=== PATIENT | male | born 1930 | race Caucasian/White ===

== ENCOUNTER 2018-07-15 10:54 | Day surgery (SDC) | payer MEDICARE, OTHER ==
[~2018-07-15] VITALS: Ht 160 cm; Wt 67.6 kg
[~2018-07-15 10:54] MED LIST: AUGMENTIN 875-1 EACH PO; COUMADIN2.5 MG PO; DOXAZOSIN MESYLA1 MG PO; FLUTICASONE PRO16 GM NAS; HYDROCODON-ACE1 EA10 PO; LEVOTHYROXINE50 MCG PO; LISINOPRIL-HCT1 EAC2 PO; LISINOPRIL10 MG PO; NORCO 5-325 TA1 EACH PO; OMEPRAZOLE20 MG PO; SYNTHROID25 MCG PO; SYNTHROID50 MCG PO
--- NOTE | 2018-07-15 13:54 | NUR ---
07/15/18 1354 Calvin Harris ROLLED PT TO LEFT LATERAL POSITION AFTER COMPLETION OF BONE MARROW BX. PT DENIES NAUSEA OR PAIN. FALLS ASLEEP EASILY. POSITIONED FOR COMFORT WITH PILLOWS. ATTENDS CHANGED AT 1354 AND SKIN CARE GIVEN.
== END 2018-07-15 14:15 | disposition home or self-care (01) ==
LOC: OPS 10:54 → DS 10:54 → OPS 12:00
PROVIDERS: Specialist
PROC: 079T3ZX Drainage of Bone Marrow, Percutaneous Approach, Diagnostic (ICD-10-PCS; 2018-07-15)
PROC: 07DR3ZX Extraction of Iliac Bone Marrow, Percutaneous Approach, Diagnostic (ICD-10-PCS; principal; 2018-07-15 12:00)
DX: C92.00 Acute myeloblastic leukemia, not having achieved remission (principal); K21.9 Gastro-esophageal reflux disease without esophagitis; Z85.46 Personal history of malignant neoplasm of prostate; Z87.440 Personal history of urinary (tract) infections; Z79.01 Long term (current) use of anticoagulants; Z79.899 Other long term (current) drug therapy; Z79.51 Long term (current) use of inhaled steroids
CPT/HCPCS: 80053; 82232; 83615; 84550; 85025; 99152; 99153; J2250; J3010; J7120

== ENCOUNTER 2018-11-21 10:03 | Emergency (ER) | payer MEDICARE, OTHER ==
[~2018-11-21] VITALS: Ht 160 cm; Wt 62.6 kg
[~2018-11-21 10:03] MED LIST changes: +ALLOPURINOL100 MG PO; +COUMADIN3 MG PO; +COUMADIN7.5 MG PO; +FUROSEMIDE40 MG PO; +HYDREA500 MG PO; +IRON325 M1 PO; +LASIX20 MG PO; +MACULAR HEALTH1 EACH PO; +METOPROLOL SUCC25 MG PO; +METOPROLOL TART25 MG PO; +POTASSIUM CHLO10 MEQ PO; +POTASSIUM CHLO20 ME1 PO; +TORSEMIDE20 MG PO; +WARFARIN SODIUM3 MG PO; +ZYLOPRIM300 MG PO
[2018-12-18] MEDS ORDERED: CEFADROXIL500 MG PO (11:04)
== END 2018-11-21 12:51 | disposition home or self-care (01) ==
LOC: ED 10:03
PROC: 093K7ZZ Control Bleeding in Nasal Mucosa and Soft Tissue, Via Natural or Artificial Opening (ICD-10-PCS; principal; 2018-11-21)
DX: R04.0 Epistaxis (principal); E78.5 Hyperlipidemia, unspecified; K21.9 Gastro-esophageal reflux disease without esophagitis; E03.9 Hypothyroidism, unspecified; I48.1 Persistent atrial fibrillation; Z85.46 Personal history of malignant neoplasm of prostate; I13.0 Hypertensive heart and chronic kidney disease with heart failure and stage 1 through stage 4 chronic kidney disease, or unspecified chronic kidney disease; I50.9 Heart failure, unspecified; N18.3 Chronic kidney disease, stage 3 (moderate); Z88.0 Allergy status to penicillin; Z88.8 Allergy status to other drugs, medicaments and biological substances; Z79.899 Other long term (current) drug therapy; Z79.01 Long term (current) use of anticoagulants
CPT/HCPCS: 36415; 85025; 85610; 99283

== ENCOUNTER 2018-12-24 16:46 | Inpatient (IN) | payer MEDICARE, OTHER ==
[~2018-12-24] VITALS: Ht 160 cm; Wt 65.5 kg
[~2018-12-24 16:46] MED LIST changes: +CEFADROXIL500 MG PO
--- OUTSIDE RECORDS SUMMARY | 2018-12-24 16:48 | XMS ---
PreManage Notification: VANI HERRON Security Critical Care Unit Manager Events No recent Security Events currently on file CRITERIA MET - [facility] - Has Care Guidelines CARE PROVIDERS ESPERANZA SOSA Internal Medicine 10/01/2018-Current [employer] PHONE: [phone] Tito Rodriguez MD Primary Care Current PHONE: [phone] shanita Case or Government Documents Librarian Current PHONE: Unknown Sam has no Care Guidelines for this patient. Care History Medical/Surgical 10/01/2018 [facility] - Patient is currently established with [facility]. If patient is seen in the ED during business hours. Please contact CHWs at [facility]. Care Recommendation: This patient has had 5 or more Emergency Department visits in the last 12 months.\T\nbsp; Patient requires education on the scope and purpose of the ED as an acute care provider not a Primary Care Provider and should not be utilized for chronic conditions.\T\nbsp; These are guidelines and the provider should exercise clinical judgment when providing care. E.D. VISIT COUNT (12 MO.) 5 [facility] Hernandez TOTAL 5 NOTE: Visits indicate total known visits. ED/UCC VISIT TRACKING (12 MO.) 12/24/2018 16:46 [facility] [place] TYPE: Emergency COMPLAINT: - SOB 11/21/2018 10:04 [facility] [place] TYPE: Emergency COMPLAINT: - NOSEBLEED DIAGNOSES: - Hypothyroidism, unspecified - Heart failure, unspecified - Other terminal operations supervisor (current) drug therapy - Persistent atrial fibrillation - senior care (current) use of anticoagulants - Personal history of malignant neoplasm of prostate - Allergy status to other drugs, medicaments and biological substances status - Gastro-esophageal reflux disease without esophagitis - Epistaxis - Allergy status to penicillin - Hypertensive heart and chronic kidney disease with heart failure and stage 1 through stage 4 chronic kidney disease, or unspecified chronic kidney disease - Chronic kidney disease, stage 3 (moderate) - Hyperlipidemia, unspecified 10/18/2018 11:23 [facility] [place] TYPE: Emergency COMPLAINT: - WEAKNESS 09/24/2018 14:46 [facility] [place] TYPE: Emergency COMPLAINT: - SOB 05/25/2018 14:54 [facility] [place] TYPE: Emergency COMPLAINT: - INFECTION DIAGNOSES: - senior care (current) use of anticoagulants - Other mcfp (current) drug therapy - Acute sinusitis, unspecified - Chronic sinusitis, unspecified - Nasal polyp, unspecified INPATIENT VISIT TRACKING (12 MO.) 10/19/2018 14:52 [facility] [place] TYPE: Medical Surgical COMPLAINT: - CONGESTIVE HEART FAILURE DIAGNOSES: - Chronic kidney disease, stage 3 (moderate) - Nonrheumatic aortic (valve) stenosis - Hypo-osmolality and hyponatremia - Hyperuricemia without signs of inflammatory arthritis and tophaceous disease - senior care (current) use of anticoagulants - Acute on chronic diastolic (congestive) heart failure - Other terminal operations supervisor (current) drug therapy - Atypical chronic myeloid leukemia, 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 - Unspecified fall, initial encounter - Hyperuricemia without signs of inflammatory arthritis and tophaceous disease - Combined rheumatic disorders of mitral, aortic and tricuspid valves - Personal history of urinary calculi - Chronic atrial fibrillation - Hypothyroidism, unspecified - Pulmonary hypertension, unspecified - Acute on chronic diastolic (congestive) heart failure - Other terminal operations supervisor (current) drug therapy - Contusion of right upper arm, initial encounter - Chronic kidney disease, stage 4 (severe) - Unspecified place in unspecified non-institutional (private) residence as the place of occurrence of the external cause - Chronic myeloid leukemia, BCR/ABL-positive, not having achieved remission - Patient's other noncompliance with medication regimen - Personal history of malignant neoplasm of prostate - Allergy status to penicillin [email or web address]
--- NOTE | 2018-12-24 21:45 | NUR ---
CALLED BY WILLIAM AT [facility] AND HE WAS ASKING IF WE COULD GET AN INR SINCE PATIENT HAS NOT HAD ONE IN OVER 2 WEEKS AND MISSED HIS COUMADIN DOSE TODAY. CALLED AND SHE GAVE THE ORDER. CALLED LAB AND THEY ARE ABLE TO RUN A PT,PTT,INR OFF THE BLOOD DRAWN IN THE ER.
--- NOTE | 2018-12-24 21:55 | NUR ---
2108 - admitted from ed via stretcher. alert, coop, weak. O2 1L/NC IN PLACE, NO SOB NOTED WITH EXERTION. ANSWERED ALL QUESTIONS APPROPRIATELY. RECEIVED LASIX INT ED. NO VOID YET. WEARS ATTENDS. REPOSITIONED IN BED MULTIPLE TIMES FOR COMFORT. SOB NOTED AFTERWARDS. SATS 97% AT THAT TIME. HOB ELEVATED. ORIENTED TO ROOM AND HOSP ROUTINES. CALL LIGHT AND FLUIDS AT HANDS REACH. WILL CHECK ATTENDS AT 2215, IF NO VOID WILL NOTIFY
[2018-12-24] MEDS ORDERED: VENCLEXTA100 MG PO (22:15)
--- NOTE | 2018-12-24 23:30 | NUR ---
PATIENT GETTING 5MG OF COUMADIN PO AND HAVING ASSESSMENT DONE. PATIENT HAS CHE LOWER LEG WRAPS FROM KNEES TO TOES PLACED BY . PATIENT HAD SOME COMPLAINT OF LEFT HEEL DISCOMFORT AND HEEL PROTECTORRS PLACED AND PATIENT SAID THAT RELIEVED THE DISCOMFORT. PATIENT HAS 2 STAGE 2 PRESSURE ULCERS ON HIS UPPER/INNER LEFT AND RIGHT BUTTOCKS WHICH ALLEVYN DRESSINGS WERE PLACED ON. PICTURES IN THE CHART. LARGE GROWTH ON THE LEFT SIDE OF THE BACK BELOW THE LEFT SHOULDER PICTURES IN CHART, ALONG WITH PICTURES OF BOTH LOWER LEG WRAPS.
--- NOTE | 2018-12-25 01:30 | NUR ---
PATIENT RESTING QUIETLY AND HAS EATEN SOME PUDDING, NOT DRINKING MUCH, DENIES THE NEED FOR ANYTHING AND IS WATCHING TV.TURNED TO RIGHT SIDE. BACKSIDE FLOATEDON PILLOWS.
--- NOTE | 2018-12-25 03:35 | NUR ---
PATIENT RESTING QUIETLY EYES CLOSED, TURNED SUPINE, RESPIRATIONS REGULAR, BUT SHALLOW. UPPER LUNGS SOUNDS STILL HAVE CRACKLES WITH DEMINISHED BASES.
--- NOTE | 2018-12-25 05:17 | NUR ---
PATIENT HAS RESTED ON AND OFF SINCE ADMISSION. ON 1L/NC AND SATS ABOVE 94%. BILAT LEG WRAPS PER . ALLEVYN DRESSINGS TO BOTH BUTTOCKS. INCONTINENT URINE IN ATTENDS X2. IV FLUSHES WELL AND PATIENT TURNED Q2HRS.
--- NOTE | 2018-12-25 05:35 | NUR ---
PATIENT WAS CHANGED, AND REPOSITIONED. VITAL SIGNS ALONG WITH I&OS COMPLETE. BEDSIDE TABLE AND CALL LIGHT WITHIN REACH.
--- NOTE | 2018-12-25 07:07 | NUR ---
RECIEVED CRITICAL LAB VALUE FROM DORITA IN LAB. WBC 47.0. CALLED DR MILLIGAN, NO NEW ORDERS.
--- NOTE | 2018-12-25 07:19 | EKG ---
[facility] [address] [place] [address] Signed Normal sinus rhythm Abnormal ECG When compared with ECG of 18-OCT-2018 11:35, Sinus rhythm has replaced Atrial flutter Vent. rate has increased BY [address] now depressed in Inferior leads Inverted T waves have replaced nonspecific T wave abnormality in Inferior leads T wave amplitude has increased in Anterior leads Confirmed by IZABELA MILLIGAN MD ([id number]) on 12/25/2018 7:19:31 AM Electronically Signed By: IZABELA MILLIGAN MD 12/25/18 0719 PATIENT NAME: VANI HERRON Electrocardiogram DATE OF : [birth year] PHYSICIAN: IZABELA MILLIGAN MD REPORT #: [id number] REPORT IS CONFIDENTIAL AND NOT TO BE RELEASED WITHOUT AUTHORIZATION
--- NOTE | 2018-12-25 07:32 | NUR ---
RECIEVED BEDSIDE REPORT FROM TEENA HO. PT SLEEPING SOUNDLY, BREATHING EVEN AND UNLABORED. HOB ELEVATED TO >45*.
--- NOTE | 2018-12-25 09:15 | NUR ---
DISCUSSED PT WRAPS WITH DR MILLIGAN, SHE ADVISED TO LEAVE WRAPS ON. DR SOSA APPLIED WRAPS IN OFFICE AND IT IS NOT SCHEDULED FOR CHANGE UNTIL FRIDAY. NO DISCHARGE, NO DRAINAGE NOTED. PT STATED HE HAS PAIN IN LEFT HEEL, "IT FEELS LIKE A BONE SPUR, SOMETHING IS POKING ME FROM THE INSIDE". HEEL ELEVATED ON PILLOW, HEEL PROTECTORS IN PLACE.
--- NOTE | 2018-12-25 09:54 | NUR ---
PT UP TO CHAIR. TOOK MEDS CRUSHED IN PUDDING. THOSE MEDS THAT COULD NOT BE CRUSHED WERE GIVEN WHOLE IN WATER. PT SWALLOWED WELL, THOUGH HE STATED HE DOES NOT SWALLOW WELL.
--- NOTE | 2018-12-25 10:49 | NUR ---
THE OTHER HOSPICE CASE MANAGER AND I CHANGED HIM AND GOT HIM UP TO THE CHAIR AROUND 0830.
--- NOTE | 2018-12-25 10:51 | NUR ---
SPOKE WITH PATIENT IN ROOM. PATIENT STATES HE WAS FEELING "SO WEAK" AND FORGOT TAKING HIS MEDICATIONS. PATIENT STILL LIVING AT HOME ALONE WITH HIS YVONNE WHO IS CHRONNICALLY ILL ALSO. PATIENT STATES THEY HAVE FAMILY CLOSE BY, AND CAREGIVER THROUGH HELPING HANDS COMES IN FROM 6:30-8:30PM EACH DAY. HE STATES THEY NEED MORE HELP PROBABLY. DISCUSSED THAT THEY HAVE CHW ANABEL WHO IS WORKING WITH THEM, HE ASKS FOR HER TO CHECK ON HIS . WE DISCUSSED HIS POSSIBLY NEEDING REHAB STAY AT DISCHARGE BEFORE BEING ABLE TO G HOME SAFELY, HE AGREES, STATES HE WOULD GO TO [facility] IN [place] IF IT IS NEEDED. PATIENT VERY SOB WITH TALKING. PHYSICAL THERAPY INTO ROOM AT THIS TIME TO WORK WITH PATIENT. CALLED [facility] WHO WILL CHECK WITH FAMILY AND . CALLED [facility], SPOKE WITH ADMITTING DIRECTOR, THEY REQUEST CLINICALS. FAXED [facility]INC[facility], FAX CONFIRMATION RECEIVED.
--- NOTE | 2018-12-25 11:18 | NUR ---
PT SWALLOWED PILLS SLOWLY, WITH WATER.
--- NOTE | 2018-12-25 15:20 | NUR ---
PATIENT USED CALL LIGHT, REQESTED TO BE TRANSFERRED TO BED. PATIENT ABLE TO STAND, PIVOT AND SIT ON BED. ASKED SECOND NURSE TO HELP LAY PATIENT DOWN. UPON LAYING PATIENT DOWN AND BOOSTING UP IN BED, PATIENT BECAME NON-RESPONSIVE, OXYGEN SATS IN LOW 80'S PULSE IN LOW 40'S. DR. MILLIGAN IN ROOM, PATIENT SLOWLY RECOVERED. CALL TO DAUGHTER KIARA THAT PATIENT WAS VERY FRAGILE AND HAD EPISODE.
--- NOTE | 2018-12-25 18:17 | NUR ---
PT HAD EPISODE OF SYNCOPE THIS AFTERNOON, BECOMING UNRESPONSIVE WHILE TRANSFERING BACK TO BED WITH 2 PERSON ASSIST. PT SLOWLY RECOVERED. FAMILY WAS CALLED TO BEDSIDE. PT TOLERATED MEDS CRUSHED IN PUDDING. PILLS UNABLE TO CRUSH HE SWALLOWED WHOLE WITH WATER WITH NO ISSUES. PT ATE MORE THIS SHIFT THAN PREVIOUS DAYS. SEVERAL LARGE INCONT VOIDS. CHRONIC 02 AT 2L. BILAT LOWER LEG WRAPS IN PLACE, LEAVE ON IF INTACT PER DR MILLIGAN AND DR SOSA. PT C/O A BONE SPUR IN LEFT HEEL EARLY IN SHIFT, RESOLVED.
--- NOTE | 2018-12-25 19:24 | NUR ---
PT ON COMMONDE, STRAINNG TO HAVE BM. PT STATES HE MANUALLY DISIMPATCTS HIMSELF. CALLED DR MILLIGAN, SHE ADVISED TO TRY A SUPPOSITORY PRIOR TO DISIMPACTION. DUE TO HIS EARLIER EPISODE OF BRADYCARDIA AND UNRESPONSIVENESS, DR MILLIGAN DOES NOT WANT HIM TO STRAIN.
--- NOTE | 2018-12-25 20:06 | NUR ---
PATIENT GIVEN 650MG PO TYLENOL FOR 8/10 LEFT HEEL PAIN AND A SUPPOSITORY TO HELP HIM HAVE A BM, AND WAS REPOSITIONED IN BED TO SUPINE.
--- NOTE | 2018-12-25 20:27 | NUR ---
AUTOMOBILE SERVICE STATION MECHANIC ROUNDING NOTE. PT RESTING IN BED WITH EYES CLOSED. DOES NOT WAKE WHILE AUDIO TECHNICIAN IN ROOM. CALL LIGHT IN REACH. ROOM IN VIEW OF RN STATION.
--- NOTE | 2018-12-25 20:57 | NUR ---
PT RESTING IN BED WATCHING TV.
--- NOTE | 2018-12-25 22:15 | NUR ---
PATIENT HAD BEEN GIVEN A SUPPOSITORY TO HELP WITH A BM, ORDERED PER DR. MILLIGAN. PATIENT IS WANTING TO BE DIGITALLY DISIMPACTED. IS HERE AND GAVE ME PERMISSION TO DO THIS PROCEDURE BECAUSE PATIENT IS SO UNCOMFORTABLE HE WANTS ME TO PUT A GLOVE ON HIM SIO HE CAN TRY AND DO IT HIMSELF. WITH YAMEL UMAÑA, ASSISTING IN TURNING PATING TO HIS LEFT SIDE. SURGILUBE WAS USED AND A VERY LARGE DARK BM WAS REMOVED AND PATIENT IS FEELING MUCH BETTER. CHUK AND ATTENDS CHANGED FOR INCONTINENT URINE. 2 NEW ALLEVYN DRESSINGS PLACED ON BILAT BUTTOCKS AFTER WASHED WITH WOUND CLEANSER. PATIENT POSITIONED TO LEFT SIDE. REMAINS ON 2L/NC.
--- NOTE | 2018-12-26 00:25 | NUR ---
PATIENT RESTING QUIETLY IN HIGH FOWLERS POSITION, RESPIRATIONS SHALLOW AND REGULAR AT A RATE OF 18. REMAINS ON 2L/NC. PATIENT HAS READJUSTED HIMSELF TO SUPINE SEMI FOWLERS POSITION.
--- NOTE | 2018-12-26 02:30 | NUR ---
PATIENT CANNOT SLEEP AND HAS DECIDED TO WATCH TV AT THIS TIME. NO C/O PAIN AT THIS TIME.
--- NOTE | 2018-12-26 03:41 | NUR ---
PATIENT AGAIN HAVING 8/10 PAIN IN HIS LEFT HEEL. 650MG PO TYLENOL GIVEN AND LEGS REPOSITIONED. PATIENT WANTED THE TV CHANGED TO THE MUSIC CHANNEL FOR HIM AND THIS WAS DONE.
--- NOTE | 2018-12-26 05:13 | NUR ---
PATIENT HAS ONLY CAT NAPPPED THROUGHT THE NIGHT. PATIENT HAD A LARGE BM BY DIGITAL DISIMPACTION AT 2215. PATIENT HAS RECEIVED 650MG TYLENOL X 2 THIS SHIFT FOR 8/10 PAIN HE SAYS HE GETS IN HIS LEFT HEEL. BOTH LOWER LEGS ARE STILL WRAPPED WITH DR. SOSA'S DRESSINGS. NELSY HAS HAD URINARY INCONTINENCE X2 THIS SHIFT AND CHUCKS AND ATTENDS WERE CHANGED AFTER STEVEN AREA WASHED. SL STILL FLUSHES WELL. PATIENT REMAINS ON 2L/NC. NEW ALLEVYN DRESSINGS WERE PLACE ON BILAT PRESSURE ULCERS ON PATIENT'S BUTTOCKS. PATIENT TURNED Q2, ON HIS LEFT SIDE AT THIS TIME.
--- NOTE | 2018-12-26 05:21 | NUR ---
PATIENT AWAKE MOST OF THE FIRST HALF OF THE SHIFT. PATIENT HAD 5MG OXYCODONE FOR 2/10 PAIN TO THE RIGHT HIP AT EVENING MED PASS, AND THEN NEEDED ANOTHER 5MG WHEN HIS HIP PAIN INCREASED TO 4/10. THEN PATIENT SPENT MOST OF THE NIGHT RESTING QUIETLY, EYES CLOSED, RESPIRATIONS REGULAR AND EVEN WITH WITH A RATE OF 16-18. CALL LIGHT IN REACH.
--- NOTE | 2018-12-26 07:46 | NUR ---
RECIEVED BEDSIDE REPORT FROM TEENA HO. PT HAD LARGE BM OVERNIGHT WITH DIGITAL DISIMPACTION. PT RESTLESS, C/O PAIN IN LEFT HEEL, BELIEVES IT IS A BONE SPUR. NO ASPERATION NOTED OVERNIGHT, SLIGHT INCREASE IN PO INTAKE.
--- NOTE | 2018-12-26 08:30 | NUR ---
PT EATING BREAKFAST. PT REQUESTED TO STAY IN BED FOR BREAKFAST, BUT AGREED TO TRY TO GET UP WITH PHYSICAL THERAPY AFTER BREAKFAST.
--- NOTE | 2018-12-26 10:21 | NUR ---
PT TOOK MEDS WITH WATER, NO CHOKING NOTED. PT TOOK SEVERAL MINUTES PER PILL. PT REPORTS PAIN IN HIS TOES, NO DRAINAGE NOTED.
--- NOTE | 2018-12-26 13:14 | NUR ---
PATIENT IN CHAIR RESTING WITH EYES CLOSED. FRESH WATER GIVEN. CALL LIGHT IN REACH. NO FURTHER NEEDS AT THIS TIME.
--- NOTE | 2018-12-26 14:35 | NUR ---
PT MOVED BACK TO BED PER HIS REQUEST. TOLERATED WELL.
--- NOTE | 2018-12-26 15:19 | NUR ---
THIS MORNING AFTER BREAKFAST THE OTHER HEALTHCARE PROJECT MANAGER AND I CHANGED HIM AND WALKED HIM TO CHAIR. GOT HIM A WARM BLANKET.
--- NOTE | 2018-12-26 15:25 | NUR ---
PATIENT IS NOW SLEEPING HIS BED WITH A WASH CLOTH ON HIS FOREHEAD.
--- NOTE | 2018-12-26 15:30 | NUR ---
PATIENT IS SLEEPING.
--- NOTE | 2018-12-26 15:39 | NUR ---
PT WAS SLEEPING SOUNDLY, WOKE UP DISOREIENTED AND CONFUSED. PT STATED HE FELT "HOT ALL OVER". VITALS WITHIN NORMAL LIMITS. ONCE PT BECAME FULLY AWAKE, HE WAS ORIENTED X4. PT REQUESTED WATER, WHICH WAS GIVEN.
--- NOTE | 2018-12-26 18:14 | NUR ---
PT UP TO CHAIR MOST OF THE SHIFT. PT CLEAR MOST OF SHIFT, ONE PERIOD OF CONFUSION WHEN WAKING UP. EASILY REORIENTED. PO INTAKE IMPROVED. URINE OUTPUT QS, BUT NOT EXCESSIVE.
--- NOTE | 2018-12-26 19:54 | NUR ---
PATIENT RESTING QUIETLY IN BED. REMAINS ON 2L/NC. ORIENTED. CALL LIGHT IN REACH.
--- NOTE | 2018-12-26 20:05 | NUR ---
FINISHER HAND ROUNDING. PT RESTING IN BED AWAKE. PT DENIES NEEDS AT THIS TIME. CALL LIGHTIN REACH. ROOM IN VIEW OF RN STATION.
--- NOTE | 2018-12-26 20:56 | NUR ---
IS AWARE OF DECREASED URINE OUTPUT.
--- NOTE | 2018-12-26 23:05 | NUR ---
PATIENT PULLED UP IN BED AND WET ATTENDS CHANGED AND PATIENT CLEANED UP IN BED AND GIVEN NEW WARM BLANKETS. CALL LIGHT IN REACH.
--- NOTE | 2018-12-27 00:09 | NUR ---
PATIENT RESTING QUIETLY, EYES CLOSED, RESPIRATIONS REGULAR AND EVEN, RESP RATE 18. CALL LIGHT IN REACH.
--- NOTE | 2018-12-27 02:06 | NUR ---
PATIENT UP TO BEDSIDE COMMODE WITH 2 PERSON ASSIST. LARGE INCONTINENCE OF URINE IN ATTENDS. ATTENDS CHANGED AND PATIENT CLEANED. MEDIUM FORMED STOOLS ON COMMODE. PATIENT BACK TO BED AND TURNED TO HIS LEFT SIDE WITH PILLOWS FOR CUSHINING. CALL LIGHT IN REACH.
--- NOTE | 2018-12-27 04:10 | NUR ---
PATIENT RESTING QUIETLY IN HIGH FOWLERS POSITION, RESPIRATIONS SHALLOW AND EVEN AT A RATE OF 18. REMAINS ON 2L/NC. CALL LIGHT IN REACH.
--- NOTE | 2018-12-27 05:06 | NUR ---
PATIENT CAT NAPPED THE FIRST HALF OF THE SHIP AND THEN HAS MAINLY RESTED QUIETLY WITH EYES CLOSED, AND RESPIRATIONS SHALLOW AND REGULAR ON 2L/NC. STILL IN AFIB MAINLY IN THE 70'S ON TELE#5. PATIENT DID GET UP TO THE BEDSIDE COMMODE WITH 2 PERSON ASSIST AND HAD A MEDIUM BM. PATIENT'S ATTENDS HAVE BEEN CHANGED A FEW TIMES FOR INCONTINENCE OF URINE. TURNED Q2/HRS. PATIENT HAS DENIED HAVING ANY PAIN ALL SHIFT.
--- NOTE | 2018-12-27 06:03 | NUR ---
VS AND I+O DONE. PATIENT ATTENDS CHANGED AND HE IS NOW RESTING QUIETLY.
--- NOTE | 2018-12-27 07:24 | NUR ---
RECIEVED BEDSIDE REPORT FROM TEENA HO. PT WAS SLEEPING, BUT WOKE TO VOICE. PT REPORTED NO PAIN, NO NEEDS AT THIS TIME.
--- NOTE | 2018-12-27 10:30 | NUR ---
PT RESTING COMFORTABLY IN CHAIR. PT WAS ABLE TO SWALLOW PILLS MUCH EASIER THIS MORNING. 1L BOLUS OF FLUIDS RUNNING PER ORDER. PT MUCH MORE TALKITIVE THIS MORNING.
--- NOTE | 2018-12-27 11:15 | NUR ---
THE OTHER COMMERCIAL DRIVER I HELPED HIM WALK TO HIS CHAIR WITH HIS WALKER FOR BREAKFAST. WE FLOATED HIS HIPS. AND SHE GOT HIM A WARM BLANKET. CHANGED BED LINENS.
--- NOTE | 2018-12-27 11:17 | NUR ---
FAMILY IS VISITING.
--- NOTE | 2018-12-27 16:08 | NUR ---
THE NURSE AND I WALKED PATIENT FROM HIS CHAIR TO THE BEDSIDE COMMODE WITH WALKER. ALSO CHANGED HIS ATTEND. WAITED UNTIL HE WAS FINISHED THAN THE NURSE HELPED HIM BACK TO HIS CHAIR. AND I GOT HIM A WARM BLANKET AND PUT HIS FEET UP.
--- NOTE | 2018-12-27 18:07 | NUR ---
PT TOOK PILLS MUCH EASIER THIS SHIFT, WHOLE WITH WATER. PT UP TO CHAIR MOST OF DAY. BM THIS SHIFT. VOIDING BETTER. ONE LITER BOLUS GIVEN. VSS. DRINKING MUCH MORE WATER.
--- NOTE | 2018-12-27 18:47 | NUR ---
PT HAD PANIC ATTACK AFTER MOVING BACK TO BED FROM THE CHAIR. RN AND BOAT FUELER STAYED IN ROOM HOLDING PT'S HANDS HE CALMED DOWN. PT STATED HE FELT HE COULDN'T BREATHE, O2 AT 2L CHRONIC IN PLACE AND PULSE OX SHOWED 96%. WITH COMFORTING TALK, PT CALMED DOWN IN ABOUT 15 MIN. ATTEND WAS CHANGED.
--- NOTE | 2018-12-27 20:47 | NUR ---
PT ASSESSMENT COMPLETE. PT DENIES PAIN OR NAUSEA. PT REPORTS ONGOING SOB. PT ALSO REPORTS CONTINUED ANXIETY, WANTS FULLING MACHINE OPERATOR TO STAY AT BEDSIDE AND HOLD HIS HAND FOR COMFORT; PROVIDED. DISCUSSION WITH PT REGARDING CAUSE OF ANXIETY. PT STATES HE DOESN'T UNDERSTAND WHY IT WAS SO HARD FOR HIM TO TRANSFER TODAY. STATES THAT HE DOESN'T KNOW IF HE WILL MAKE IT THROUGH THE NIGHT. PT REASSURED. PT STATES THAT HE IS "FEELING BETTER" AFTER DISCUSSION. LUNG SOUNDS TIGHT THROUGHOUT, PT WITH SHALLOW BREATHING. O2 IN PLACE APPROPRIATELY. EDEMA PRESENT TO BILATERAL THIGHS, 2-3+ PITTING EDEMA. COMPRESSION WRAPS PRESENT TO BILATERAL LOWER LEGS. CMS INTACT. ALLEVYN FOAM TO BUTTOCKS X 2. PT REQUESTS WARM BLANKET, PROVIDED. PT DENIES FURTHER NEEDS AT THIS TIME. CALL LIGHT INR EACH. ROOM IN VIEW OF RN STATION.
--- NOTE | 2018-12-27 21:30 | NUR ---
PT CALLING OUT FOR ASSISTANCE, ALSO UTILIZES CALL LIGHT. PT STATES THAT HE NEEDS TO HAVE BM. PT STATES HE DOES NOT WANT TO ATTEMPT TO GET OUT OF BED AT THIS TIME HOWEVER. PT STATES THAT HE WILL CALL FOR ASSISTANCE GETTING CLEANED UP WHEN HE IS READY.
--- NOTE | 2018-12-28 00:30 | NUR ---
PT RESTING IN BED WITH EYES CLOSED. RESPIRATIONS SHALLOW AND UNLABORED. PT APPEARS TO BE SLEEPING. CALL LIGHT IN REACH. ROOM IN VIEW OF RN STATION.
--- NOTE | 2018-12-28 03:24 | NUR ---
PT ASSESSMENT COMPLETE. PT DENIES PAIN, NAUSEA, OR SOB AT THIS TIME. PT FOUND TO HAVE O2 OFF. ASSISTED PT TO REPLACE. PT ASKS IF HE IS GETTING TOO MUCH O2, THINKS HE RESTS BETTER WITH IT OFF. PT ENCOURAGED TO KEEP O2 IN PLACE TO AVOID SOB. PT STATES UNDERSTANDING. LUNG SOUNDS COARSE THROUGHOUT. EDEMA TO BILATERAL UPPER THIGHS AND GROING 2-3+. COMPRESSION DRESSINGS REMAIN IN PLACE TO BILATERAL LOWER EXTREMITIES. PT SHOWS NO S/SX OF ANXIETY THIS ASSESSMENT. PT DENIES FURTHER NEEDS. CALL LIGHT IN REACH. ROOM IN VIEW OF RN STATION WITH CURTAIN OPEN.
--- NOTE | 2018-12-28 07:11 | NUR ---
RECIEVED BEDSIDE REPORT FROM TEENA JEREZ. PT SLEEPING SOUNDLY. ANXIETY REDUCED OVERNIGHT. PT REPORTED ANXIETY D/T MOVING. FLUID COMPLETE. URINE OUTPUT QS.
--- NOTE | 2018-12-28 08:41 | NUR ---
PATIENT SITTING UP IN BED EATING BREAKFAST. RN SAID NO TO GETTING PATIENT UP TO CHAIR. CALL LIGHT IN REACH. NO FURTHER NEEDS AT THIS TIME.
--- NOTE | 2018-12-28 10:05 | NUR ---
PATIENT UP TO CHAIR, 2PA FWW. FRESH WATER GIVEN. WARM BLANKET GIVEN. LINENS CHANGED. CALL LIGHT IN REACH. NO FURTHER NEEDS AT THIS TIME.
--- NOTE | 2018-12-28 10:44 | NUR ---
PT TOOK PILLS WITH NO ISSUES, WHOLE WITH WATER. PT WAS ABLE TO TAKE MIRALAX WITH NO ISSUES. PT IS VERY PLESANT, BUT REPORTS ANXIETY RELATED TO MOVING FROM CHAIR TO BED. PT DID NOT EAT MUCH BREAKFAST, REPORTED THE SAUSAGE WAS "SPICY". PT DECLINED ANY OTHER OPTIONS. PT IS NOW UP IN CHAIR.
--- NOTE | 2018-12-28 11:58 | NUR ---
PT UP TO CHAIR FOR LUNCH. TOLERATED WALKING WITH PHYSICAL THERAPY.
--- NOTE | 2018-12-28 13:24 | NUR ---
PATIENT SITTING IN CHAIR. DEPENDS CHANGED. CALL LIGHT IN REACH. NO FURTHER NEEDS AT THIS TIME.
[2018-12-28] MEDS ORDERED: LEVOTHYROXINE75 MCG PO (14:06)
--- NOTE | 2018-12-28 14:13 | NUR ---
PT APPEARS COMFORTABLE IN CHAIR. ASKED THAT HIS PILLOWS BE READJUSTED. PT ATE LUNCH WELL.
--- NOTE | 2018-12-28 14:53 | NUR ---
PT AND ALL BELONGINGS MOVED TO ROOM 107. FAMILY ARRIVED WE WERE MOVING HIM, SO THEY ARE AWARE. PT TOLERATED THE MOVE WELL, HOWEVER SEEMS ANXIOUS ABOUT BEING SO FAR AWAY. PT ASKED THIS NURSE IF I COULD TALK TO WBT ABOUT GETTING HIM A ROOM CLOSE TO THE NURSING STATION.
--- NOTE | 2018-12-28 16:09 | NUR ---
PT PLACED BACK IN BED. PT TOLERATED BETTER THAN PREVIOUSLY. PREVIOUS WRAPS WERE REMOVED PRIOR TO DR. SHEILA BATRES. FAMILY AT BEDSIDE. SKIN UNDER WRAPS IS GROSSLY INTACT AND CLEAN.
--- NOTE | 2018-12-28 18:12 | NUR ---
VERBAL ORDER FROM SHADIA MCCARTNEY PA-C TO INCREASE DILAUDID TO 8MG Q4HR PRN. SINCE PT IS DUE FOR MEDICATION NEXT AT 1909, SHADIA ORDERED TO WAIT TO GIVE NEW DOSE AT 1909.
--- NOTE | 2018-12-28 19:32 | NUR ---
PT CHANGED ROOMS THIS SHIFT. PT WALKED FROM CHAIR TO DOOR AND BACK WITH PHYSICAL THEARAPY, TOLERATED WELL ON 2L CHRONIC O2. DR SOSA CAME IN TO CHANGE WRAPS ON LOWER LEGS. SKIN UNDER WRAPS WAS INTACT AND CLEAN.
--- NOTE | 2018-12-28 20:08 | NUR ---
RECEIVED REPORT FROM DAY SHIFT RN. PATIENT IS RESTING IN BED. PATIENT DENIES ANY NEEDS. CALL LIGHT IN REACH.
--- NOTE | 2018-12-28 21:00 | NUR ---
PATIENT ASSESEMENTC COMPLETED. PATIENT REPOSITIONED IN BED. PATIENT REMAINS ON 2L VIA NC. PATIENTS EVENING MEDICATIONS GIVEN PER ORDER. PATIENT IS RESTING IN BED. PATIENT DENIES ANY SOB. PATIENT PROVIDED WITH FRESH ICE WATER. PATIENTS CALL LIGHT IS WITHIN REACH.
--- NOTE | 2018-12-29 00:13 | NUR ---
PATIENT REPOSITIONED IN BED. PATIENT DENIES ANY FURTHER NEEDS. CALL LIGHT IN REACH.
--- NOTE | 2018-12-29 00:47 | NUR ---
PATIENT ASKED FOR WARM BLANKET TWICE.
--- NOTE | 2018-12-29 01:17 | NUR ---
PATIENT IS RESTING IN BED WITH EYES CLOSED, RR 18. CALL LIGHT IN REACH.
--- NOTE | 2018-12-29 01:57 | NUR ---
PATIENT REPOSITIONED IN BED. PATIENT GIVEN WARM BLANKET. PATIENT DENIES ANY NEEDS. CALL LIGHT IN REACH.
--- NOTE | 2018-12-29 03:59 | NUR ---
PATIENTS ATTEND CHANGED. PATIENT WAS INCONTINENT OF URINE. PATIENT REPOSITIONED IN BED. PATIENT DENIES ANY NEEDS. CALL LIGHT IN REACH.
--- NOTE | 2018-12-29 04:40 | NUR ---
PATIENT RESTED ON AND OFF THROUGHOUT THE SHIFT. PATIENT IS ON A CARDIAC DIET. PATIENT HAS DECREASED APPETTITE. PATIENT HAS DIET CONSULT. PATIENT IS WORKING WITH PT/OT. PATIENT IS A 2PA W/GAIT BELT AND FWW, MAX ASSIST. PATIENT IS ON 2L VIA NC AND THIS IS CHRONIC. PATIENT IS ON ASP PRECAUTIONS. PATIENT HAS EDEMA IN BILAT LOW EXT. PATIENT HAS CABRERA BOOT ON BILAT LOW EXT. PATIENT IS ANXIOUS AT TIMES. PATIENT REPOSITIONED OFTEN. PATIENT IS AAOX3 AND USES CALL LIGHT APPROPRIATELY. PATIENT IS INCONTINENT AT BASELINE. PATIENT HAS DENIED CHEST PAIN. NO SOB NOTED.
--- NOTE | 2018-12-29 06:34 | NUR ---
PATIENTS MORNING MEDICATIONS GIVEN PER ORDER. PATIENT DENIES ANY PAIN OR SOB. PATIENTS VITALS TAKEN AND RECORDED. DW RECORDED. PATIENT DENIES ANY PAIN OR SOB. HEEL PROTECOTORS IN PLACE. NO NEEDS NOTED. CALL LIGHT IN REACH.
--- NOTE | 2018-12-29 08:12 | NUR ---
pt called and I couldnt hear him, went to check on him and he wanted his breakfast moved closer to him. pt was short of breath. came out and told the charge nurse. called rt and jaret said he didnt want one. Asked her what his oxygen saturations were and she said she didnt check them.
--- NOTE | 2018-12-29 08:15 | NUR ---
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 [place] IN ROOM. PT SATTING 98% ON 2LNC, NOT CURRENTLY SOB. PT DENIES NEED FOR NEB TREATMENT TO THIS RN. PT STATES "I JUST GOT A LITTLE EXCITED." LUNGS DIMINISHED IN BASES BUT OTHERWISE CLEAR. PT SITTING UP EATING BREAKFAST.
--- NOTE | 2018-12-29 10:00 | NUR ---
P.T. IN TO WORK WITH PT. PT 2PA WITH WALKER TO COMMODE. INCONTINENT OF LARGE AMOUNT OF URINE. HAD SOFT BM. PT AMB 2PA WITH WALKER FROM COMMODE TO EDGE OF BED. PT THEN ASSISTED TO RECLINER. LEGS ELEVATED. PT EASILY SOB WITH EXERTION. DENIES PAIN OR OTHER CONCERNS. TOOK SIPS OF WATER. CALL LIGHT WITHIN REACH.
[2018-12-29] MEDS ORDERED: IPRAT-ALBUT 0.5-3 ML INH (10:10)
[2018-12-29] MEDS ORDERED: METOPROLOL SUCC25 MG PO (10:12)
--- NOTE | 2018-12-29 11:12 | NUR ---
FAXED ORDERS, AND PASRR TO [facility], RECIEVED CONFIRMATION OF FAX. CALLED AND TALKED WITH EVELINE WHO STATES THEIR HEATING AND COOLING TECHNICIAN WILL BE HERE IN ABOUT A HALF AN HOUR TO SIFTING OPERATOR PT. ALSO INFORMED HER THAT THE PT IS ON O2 AND WILL NEED A TANK BROUGHT UP FOR TRANSPORT. SHE AGREED.
--- NOTE | 2018-12-29 11:50 | NUR ---
PT ASSISTED TO GET DRESSED. IV DC'D, CATH TIP INTACT, SITE WITHOUT REDNESS OR INFLAMMATION. CALL LIGHT WITHIN REACH. WAITING FOR RIDE FROM [place].
== END 2018-12-29 12:15 | DRG 292 ==
LOC: ED 16:46 → MS 19:35
PROVIDERS: ADMIT Internal Medicine
DX: I50.33 Acute on chronic diastolic (congestive) heart failure (principal); I38 Endocarditis, valve unspecified; C92.00 Acute myeloblastic leukemia, not having achieved remission; K21.9 Gastro-esophageal reflux disease without esophagitis; N18.9 Chronic kidney disease, unspecified; I48.91 Unspecified atrial fibrillation; I27.20 Pulmonary hypertension, unspecified; R00.1 Bradycardia, unspecified; I73.9 Peripheral vascular disease, unspecified; I87.2 Venous insufficiency (chronic) (peripheral); E03.9 Hypothyroidism, unspecified; E79.0 Hyperuricemia without signs of inflammatory arthritis and tophaceous disease; T44.7X5A Adverse effect of beta-adrenoreceptor antagonists, initial encounter; Y92.239 Unspecified place in hospital as the place of occurrence of the external cause; Z89.421 Acquired absence of other right toe(s); Z79.01 Long term (current) use of anticoagulants; Z79.899 Other long term (current) drug therapy; Z88.0 Allergy status to penicillin; Z85.46 Personal history of malignant neoplasm of prostate
CPT/HCPCS: 36415; 71045; 80048; 80053; 82330; 83735; 83880; 84100; 84484; 84550; 85025; 85610; 85730; 93005; 93010; 96374; 97110; 97116; 97163; 97165; 97530; 99285-25; J1940; J7030

== ENCOUNTER 2019-01-05 15:07 | Observation (INO) | payer MEDICARE, OTHER ==
[~2019-01-05] VITALS: Ht 160 cm; Wt 60.1 kg
[~2019-01-05 15:07] MED LIST changes: +IPRAT-ALBUT 0.5-3 ML INH; +LEVOTHYROXINE75 MCG PO; +VENCLEXTA100 MG PO
--- OUTSIDE RECORDS SUMMARY | 2019-01-05 15:10 | XMS ---
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 Care History Medical/Surgical 10/01/2018 [facility] - Patient is currently established with [facility]. If patient is seen in the ED during business hours. Please contact CHWs at [facility]. Care Recommendation: This patient has had [...] providing care. E.D. VISIT COUNT (12 MO.) 6 WILLIAM Hernandez TOTAL 6 NOTE: Visits indicate total known visits. 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 - Acute sinusitis, unspecified - Chronic sinusitis, unspecified - Nasal polyp, unspecified INPATIENT VISIT TRACKING (12 MO.) 12/24/2018 19:35 [facility] TYPE: Medical Surgical COMPLAINT: - CHF DIAGNOSES: - Peripheral vascular disease, unspecified - Adverse effect of beta-adrenoreceptor antagonists, initial encounter - Unspecified atrial fibrillation - Venous insufficiency (chronic) (peripheral) - Gastro-esophageal reflux disease without esophagitis - Endocarditis, valve unspecified - Peripheral vascular disease, unspecified - Venous insufficiency (chronic) (peripheral) - intermediate frame tender (current) use of anticoagulants - Acute on chronic diastolic (congestive) heart failure - intermediate frame tender (current) use of anticoagulants - Adverse effect of beta-adrenoreceptor antagonists, initial encounter - Hyperuricemia without signs of inflammatory arthritis and tophaceous disease - Personal history of malignant neoplasm of prostate - Allergy status to penicillin - Unspecified place in hospital as the place of occurrence of the external cause - Hypothyroidism, unspecified - Unspecified place in hospital as the place of occurrence of the external cause - Pulmonary hypertension, unspecified - Hyperuricemia without signs of inflammatory arthritis and tophaceous disease - Acquired absence of other right toe(s) - Hypothyroidism, unspecified - Gastro-esophageal reflux disease without esophagitis - Other assisted (current) drug therapy - Chronic kidney disease, unspecified - Acquired absence of other right toe(s) - Unspecified atrial fibrillation - Allergy status to penicillin - Acute myeloblastic leukemia, not having achieved remission - Pulmonary hypertension, unspecified - Bradycardia, unspecified - Personal history of malignant neoplasm of prostate - Bradycardia, unspecified - 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 - Atypical chronic [...] Medical Surgical COMPLAINT: - CHF DIAGNOSES: - custodial (current) use of anticoagulants - Unspecified fall, initial encounter - Hyperuricemia without signs of inflammatory arthritis and tophaceous disease - Combined rheumatic disorders of mitral, aortic and tricuspid valves - Personal history of urinary calculi - Chronic atrial fibrillation - Hypothyroidism, unspecified - Pulmonary hypertension, unspecified - Acute on chronic diastolic (congestive) heart failure - Other assisted (current) drug therapy - Contusion of right [...] of prostate - Allergy status to penicillin [email or web address]
[2019-01-05] MEDS ORDERED: ACETAMINOPHEN650 M1 PO (16:10)
[2019-01-05] MEDS ORDERED: DOCUSATE SODIU100 MG PO (16:12)
[2019-01-05] MEDS ORDERED: POTASSIUM CHLO20 ME1 PO (16:14)
[2019-01-05] MEDS ORDERED: PANTOPRAZOLE SO40 MG PO (16:15)
[2019-01-05] MEDS ORDERED: SENNA8.6 MG PO (16:16)
--- NOTE | 2019-01-05 18:45 | NUR ---
PT ARRIVED FROM ED FOR COMFORT CARE. PT TRANFERED TO BED WITH 3PA. PT MINIMALLY RESPONSIVE, ONLY TO PAIN. PTS FAMILY STATES PT APPEARS TO BE IN PAIN, FACES SCALE OF 6/10, SEE MAR FOR MEDIATION GIVEN. VITAL TAKEN. INTAKE ASSMENT DONE. WARM BLANKETS PROVIDED. MOUTH CARE DONE FOR PT. O2 IN PLACE AT 2L NC, WITH 100% O2 SATURATION. FAMILY AT BEDSIDE. COMFORT CARE TRAY PROVIDED. BED RAILS UP. CALL LIGTH WITHIN REACH.
--- NOTE | 2019-01-05 19:15 | NUR ---
CHARGE NURSE REPORT RECEIVED FROM UMA BAILEY IN BED, WITH FAMILY IN ROOM, EYES CLOSED,
--- NOTE | 2019-01-05 20:00 | NUR ---
RECIEVED CHANGE OF SHIFT REPORT FROM DOMENICO DICKINSON. PATIENT RESTING IN BED WITH FAMILY AT BEDSIDE, RESPIRATORY RATE IS EVEN AND UNLABORED. NO SIGN OF DISTRESS. WARM BLANKETS PROVIDED TO PATIENT. NO MORE NEEDS AT THIS TIME.
--- NOTE | 2019-01-05 20:00 | NUR ---
RECIEVED REPORT FORM DOMENICO DICKINSON. PATIENT'S FAMILY IN ROOM. PATIENT RESTING IN BED WITH EYES CLOSED, RESPIRATORY RATE IS EVEN AND UNLABORED. COMFORT CARE CART IN ROOM FOR FAMILY. NO MORE NEEDS AT THIS TIME.
--- NOTE | 2019-01-05 21:08 | NUR ---
PT FAMILY REQUESTED SOMETHING PT WAS SHOWING SIGNS OF UNEASINESS. MEDICATED WITH 1 MG ATIVAN, IV. WHILE NURSE IN ROOM PT SHOWED FACIAL EXPRESSIONS, NON VERBAL. ROOM IS FULL OF FAMILY
--- NOTE | 2019-01-05 22:35 | NUR ---
CALLED DR. MILLIGAN TO CLARIFY ORDERS. DR. MILLIGAN STATED TO D/C DICKINSON CATHETER AND TO CHANGE VITALS SIGNS TO PRN TO FOLLOW COMFORT CARE POLICY. ORDERED VERIFED THROUGH READ BACK.
--- NOTE | 2019-01-05 22:47 | NUR ---
COMFORT CARE ASSESSMENT COMPLETE. PATIENT APPEARS TO BE COMFORTABLE IN BED WITH EYES CLOSED, RESPIRATORY RATE IS EVEN AND UNLABORED, WITH PERIODS OF APNEIC EPISODES. FAMILY REPORTED THAT PATIENT APPEARED TO BE "MOVING AROUND MORE", WARM BLANKET PROVIDED, FAMILY FELT THAT THIS MIGHT MAKE PATIENT MORE COMFORTABLE. CHAPSTICK APPLIED. IV ASSESSED, WNL. CALL LIGHT WITHIN REACH. NO MORE NEED AT THIS TIME.
--- NOTE | 2019-01-06 00:01 | NUR ---
ROUNDED ON PATIENT WITH FAMILY AT BEDSIDE. FAMILY STATED THAT PATIENT APPEARED TO BE SLIGHTY TENSE. PRN PAIN MEDICATION PROVIDED PER MAR ORDER. PATIENT SLIGHTLY TENSE AT MOMENTS WITH SOME MOVEMENTS IN ARMS. CHAPSTICK APPLIED TO PATIENT LIPS. WATER PROVIDED TO PATIENT FAMILY PER REQUEST. CALL LIGHT WITHIN REACH. NO MORE NEEDS AT THIS TIME.
--- NOTE | 2019-01-06 00:49 | NUR ---
CHECKED IN ON PT, PERIODS OF APNEA, RESTFUL. AT BEDSIDE, GAVE THUMBS UP SIGN.
--- NOTE | 2019-01-06 01:27 | NUR ---
ROUNDED ON PATIENT TO ANSWER PATIENT CALL LIGHT. FAMILY REPORTS PATIENT APPEARS AGGITATED. PATIENT VISIBLY APPEARS RESTLESS. PRN MEDICATION PROVIDED PER MAR ORDER. CHAP STICK APPLIED. WARM BLANKET PROVIDED. CALL LIGHT WITHIN REACH. FAMILY DENIES ANYMORE NEEDS AT THIS TIME. CALL LIGHT WITHIN REACH.
--- NOTE | 2019-01-06 03:40 | NUR ---
rounded on patient and family. family reported they were not sure if patient was uncomfortable as he seemed resless in bed. patient's arm appeared to be slightly restless, prn pain medication provided. chap stick applied. respiratory rate is even and unlabored, no other signs of tensing or grimacing. family denies any more needs at this time. call light within reach.
--- NOTE | 2019-01-06 05:01 | NUR ---
Pt was sleeping, respirations 16, family at bedside, family stated pt was "moving his arms and said his 's name".
--- NOTE | 2019-01-06 05:42 | NUR ---
rounded on patient after being notified by family member that patient was appearing to be more restless. this rn assessed patient to occasionally tensed arms and let out slight moan, prn pain medication provided per order. chap stick applied. respiratory rate is even and unlabored. family stated they felt patient is comfortable and this time. no more needs at this time. call light within reach.
--- NOTE | 2019-01-06 07:58 | NUR ---
Report received from Nimco DICKINSON at the bedside. Pt's at bedside and the call garzon is within reach. Chemo precautions in place. Pt's states she is unsure if the pt is comfortable or not. Pt being medicated at this time.
--- NOTE | 2019-01-06 07:58 | NUR ---
ana called nurses station to request pt have medication for pain and anxiety. 1mg ativan and 2mg morphine administered at this time.
--- NOTE | 2019-01-06 09:00 | NUR ---
Pt sleeping in the bed at this time. The pt's daughter, two sons and are all at the bedside. The family states they belive the pt is comfortable and wish to allow the pt to sleep. They were informed to call if they feel the pt starts having any pain or discomfort.
--- NOTE | 2019-01-06 11:34 | NUR ---
I was notified by the pt's family that the pt is having some pain again. He was medicated as ordered and the family was instructed to call if they see any more signs of pain.
--- NOTE | 2019-01-06 11:43 | NUR ---
MED REC COMPLETE
--- NOTE | 2019-01-06 12:15 | NUR ---
Pt sleeping at this time.
--- NOTE | 2019-01-06 12:37 | NUR ---
PT CONTINUES SLEEPING, FAMILY REMAINS AT THE BEDSIDE. THE FAMILY DENIES THE NEED FOR ANYTHING AT THIS TIME.
--- NOTE | 2019-01-06 14:14 | NUR ---
PT ON PRECAUTIONS, SYNTHETIC RESIN OPERATOR BECKY RECOMMENDED I WAIT TO VISIT. PT TO BE PLACED ON COMFORT CARE. WILL FOLLOW NEEDED
--- NOTE | 2019-01-06 15:11 | NUR ---
Pt sleeping at this time. His family states they belive he is comfortable and they decline to need for anything for him at this time. They were encouraged to call with any problems or questions. The kitchen was called to refill the coffee crafe for the family.
--- NOTE | 2019-01-06 16:33 | NUR ---
Pt sleeping at this time.
--- NOTE | 2019-01-06 16:50 | NUR ---
Pt continues sleeping at this time. His molina has not produced any urine this shift. Arley's family state that they belive he is comfortable and they deny the need for anything at this time.
--- NOTE | 2019-01-06 17:10 | NUR ---
PT IS ON COMFORT MEASURES AND HAS LEUKEMIA. HE HAD A DOSE OF CHEMO ON 01/05/19 AND IS ON CONTACT PRECAUTIONS DUE TO THIS. HE WOULD OPEN HIS EYES AND DID STATE OUCH A FEW TIMES THIS SHIFT BUT DID NOT ANSWER ANY QUESTIONS AND WAS MINIMALLY RESPONSIVE. HE WAS MEDICATED SEVERAL TIMES FOR PAIN AND APPEARS COMFORTABLE AFTER DOSING. HE IS NPO AND HAS A LEFT AC SL IN PLACE WHICH FUNCTIONS WELL. FAMILY HAS BEEN PRESENT ALL DAY AND THERE IS THE COMFORT CART PRESENT FOR THEM.
--- NOTE | 2019-01-06 17:44 | NUR ---
Pt's family called and they state they believe he is having some pain and agitation. He is moving about in his bed and rates a 5 on the face scale. He was medicated as ordered.
--- NOTE | 2019-01-06 18:39 | NUR ---
PT SLEEPING AT THIS TIME. FAMILY STATES THAT THEY ARE DOING WELL AND DO NOT NEED ANYTHING AT THIS TIME.
--- NOTE | 2019-01-06 19:04 | NUR ---
IN ROOM FOR REPORT, PT IS RESTING WITH EYES CLOSED, AND NEICE ARE IN ROOM WITH HIM AT THIS TIME. THEY DENY NEEDS AND CALL LIGHT IS CLOSE.
--- NOTE | 2019-01-06 21:30 | NUR ---
PT REPOSITIONED. ASSESSMENT PARTIALLY COMPLETED WITHOUT MOVING PT TOO MUCH. MORPHINE ADMINISTERED TO KEEP PT COMFORTABLE. NO OUTPUT NOTED IN DICKINSON CATH. PT'S AND NEICE ARE IN THE ROOM AND THEY DENY NEEDS.
--- NOTE | 2019-01-06 22:24 | NUR ---
PT IS RESTING WITH EYES CLOSED, RR IS EVEN. FAMILY IS UP WALKING AROUND IN THE ACRTY.
--- NOTE | 2019-01-06 23:05 | NUR ---
IN ROOM TO ADMINISTER MEDICATIONS. PT IS RESTING WITH EYES CLOSED, RR IS STILL EVEN ON 2 LNC. STATES SHE WANTS TO "KEEP HIM COMFORTABLE POSSIBLE" BLANKETS BROUGHT IN FOR FAMILY AND THEY DENY NEEDS AT THIS TIME.
--- NOTE | 2019-01-07 00:05 | NUR ---
NIECE PAULINE EXPRESSED CONCERN ABOUT PTS BREATHING CHANGING. ASKED IF IT IS OK TO TAKE VS AND FAMILY AGREED. THEY WANT TO BE ABLE TO NOTIFY KIDS WHO ARE 30 MINUTES AWAY IF HE IS NEARING THE END. VS WERE WNL OTHER THAN BP 70/38. ADVISED FAMILY WE CANNOT SAY FOR SURE BUT WILL CONTINUE TO MONITOR. KIRT RIM TURNING FINISHER WILL ALSO LOOK AT PT.
--- NOTE | 2019-01-07 01:53 | NUR ---
PT IS MOANING MORE AT THIS TIME. ADMINISTERED IV MORPHINE. IS SLEEPING BUT NIECE IS AWAKE IN ROOM AND DENIES NEEDS AT THIS TIME. CALL LIGHT IS WITHIN REACH.
--- NOTE | 2019-01-07 03:47 | NUR ---
PT'S PULSE IS THREADY, AND RESPIRATIONS HAVE MORE OF A RATTLE SOUND. NIECE CALL PT'S CHILDREN IN TO BE WITH THEM. ADMINISTERED ATIVAN, MORPHINE AND ATROPINE. NO URINE OUTPUT. FAMILY DENIES NEEDS AT THIS TIME.
--- NOTE | 2019-01-07 04:21 | NUR ---
NIECE SAID PT WAS BREATHING DIFFERENTLY. ENETERED ROOM TO ASSESS PT. HE HAS AGONAL BREATHING WITH APNEA. AUSCULTATED APICAL PULSE IT IS VERY FAINT. ADVISED FAMILY TO SAY THEIR GOODBYES AND SPEND TIME WITH HIM.
--- NOTE | 2019-01-07 04:22 | NUR ---
FAMILY STATES PT HAS PASSED, ENTERED THE ROOM. AND NO APICAL PULSE WAS AUSCULTATED AND BREATHING HAS STOPPED. WILL NOTIFY DR MILLIGAN AND . ADVISED FAMILY AND THEY DENY NEEDS AT THIS TIME.
--- NOTE | 2019-01-07 04:28 | NUR ---
SOLUTION DESIGN ENGINEER NOTIFIED DR MILLIGAN AND CLOCK AND WATCH ASSEMBLER OF PT'S PASSING.
--- NOTE | 2019-01-07 04:54 | NUR ---
ARRIVED AND IS IN THE ROOM WITH THE FAMILY.
--- NOTE | 2019-01-07 05:45 | NUR ---
AT 0425 TECHNICAL WRITING LEAD/MGR WAS MADE AWARE OF PT . @ THIS TIME [facility] WAS NOTIFIED OF PT .
--- NOTE | 2019-01-07 05:51 | NUR ---
I WAS CALLED IN AT THE PASSING OF THIS PT. WHEN I ARRIVED FAMILY WAS HERE. I PRAYED WITH THEM, THEN TALKED WITH THEM A FEW MINUTES. LATER TALKED WITH THEM ABOUT WHICH HOME TO USE AND GOT SIGNATURE FOR RELEASE OF BODY. AFTER THEY LEFT I CALLED [facility]/, ESCORTED BODY TO TRANSPORT VAN COVERED WITH PASSAGE QUILT.
== END 2019-01-07 04:20 ==
LOC: ED 15:07 → MS 15:08
PROVIDERS: ADMIT Internal Medicine
DX: C92.10 Chronic myeloid leukemia, BCR/ABL-positive, not having achieved remission (principal); I13.0 Hypertensive heart and chronic kidney disease with heart failure and stage 1 through stage 4 chronic kidney disease, or unspecified chronic kidney disease; N18.4 Chronic kidney disease, stage 4 (severe); I50.32 Chronic diastolic (congestive) heart failure; E78.5 Hyperlipidemia, unspecified; K21.9 Gastro-esophageal reflux disease without esophagitis; E03.9 Hypothyroidism, unspecified; I48.1 Persistent atrial fibrillation; I95.9 Hypotension, unspecified; I35.0 Nonrheumatic aortic (valve) stenosis; I27.20 Pulmonary hypertension, unspecified; R74.0 Nonspecific elevation of levels of transaminase and lactic acid dehydrogenase [LDH]; R64 Cachexia; Z51.5 Encounter for palliative care; Z88.0 Allergy status to penicillin; Z66 Do not resuscitate; Z79.01 Long term (current) use of anticoagulants; Z79.899 Other long term (current) drug therapy; Z85.46 Personal history of malignant neoplasm of prostate; Z68.23 Body mass index [BMI] 23.0-23.9, adult
CPT/HCPCS: 71045; 80053; 83605; 85025; 87040; 96361; 96365; 96366; 96375; 96376; 99285-25; J0692; J1170; J2060; J2270; J2405; J7030; J7060